=== PATIENT | male | born 1950 | race Caucasian/White ===

== ENCOUNTER → 2017-11-17 10:39 | Outpatient (CLI) | payer OTHER, SELFPAY ==
--- NOTE | 2017-11-17 | DI.ECHO.S_ITS ---
[facility]---------+ [facility] +---------+ : : [address] : [address] : : : : [id number] : : : : Phone: [phone]+ Echocardiogram Report + + :Name: KAMRYN GARCIA Study Date: 11/17/2017 Height: 69 in : :[facility] Exam Location: [facility] Weight: 195 lb : : Gender: Male BSA: 2.0 m2 : :: 1950 Age: 67 yrs BP: 140/90 mmHg: :Reason For Study: Dyspnea : : Performed By: Felicita Page : :Referring: RADHA SAGASTUME : + + Interpretation Summary Small left ventricular cavity with ejection fraction 60-65%. Mildly dilated both atria. Mild aortic valve sclerosis. Mild to moderate aortic regurgitation. Mild mitral annular calcification. The right ventricular systolic pressure is estimated at 26 mmHg assuming a right atrial pressure of 8 mm Hg. Mildly dilated aortic root and ascending aorta. Procedure: A two-dimensional transthoracic echocardiogram with color flow and Doppler was performed. The study quality was technically adequate. The patient was in sinus bradycardia with heart rates between 56-62 bpm during the exam. Left Ventricle: The left ventricular cavity is small. The ejection fraction is estimated to be 60-65%. There are no focal wall motion abnormalities. Assessment of diastolic parameters indicates normal left ventricular diastolic function and normal filling pressures. Right Ventricle: The right ventricle is normal in size and function. Atria: Both atria are mildly dilated. There is no Doppler evidence for an interatrial shunt. Mitral Valve: The mitral valve leaflets are slightly calcified. There is mild mitral annular calcification. There is no mitral regurgitation noted. Aortic Valve: The aortic valve is not well visualized. The aortic valve opens well. There is mild aortic valve sclerosis. There is mild to moderate aortic regurgitation. Tricuspid Valve: The tricuspid valve is normal in structure and function. There is trace tricuspid regurgitation. The right ventricular systolic pressure is estimated at 26 mmHg assuming a right atrial pressure of 8 mm Hg. Pulmonic Valve: The pulmonic valve is not well visualized. There is no pulmonic valvular regurgitation. Great Vessels: The aortic root is mildly dilated. The ascending aorta is mildly enlarged. The aortic arch is normal in size. The pulmonary artery is normal size. The IVC is dilated (diameter is greater than 2.1 cm) yet it collapses greater than 50% with a sniff. This suggests a right atrial pressure of 8 mm Hg. Pericardium/ Pleura There is no pericardial effusion. There is no pleural effusion. MMode/2D Measurements & Calculations LVIDd: 4.4 cm LVOT diam: 2.3 cm LVIDs: 2.4 cm Ao root diam: 4.2 cm FS: 44.5 % asc Aorta Diam: 3.7 cm EPSS: 0.16 cm Ao Arch Diam (Prox Trans): 2.5 cm IVSd: 0.73 cm LVPWd: 0.68 cm LV simpson. diameter/BSA (cm/m^2): 2.2 LV sys. diameter/BSA (cm/m^2): 1.2 LA A2 area: 25.3 cm2 RA long axis: 6.2 cm LA A4 area: 26.1 cm2 RA area: 23.4 cm2 LA length (vol): 7.0 cm RA vol: 75.1 ml LA vol: 80.1 ml RA : 36.7 ml/m2 LA vol index: 39.2 ml/m2 IVC diam: 2.4 cm RVD1 (basal): 4.7 cm TAPSE: 2.8 cm Doppler Measurements & Calculations Ao V2 max: 157.4 cm/sec LVOT Max Wilson: 122.8 cm/sec Ao V2 mean: 118.0 cm/sec LV V1 max P.0 mmHg Ao max P.9 mmHg LV V1 VTI: 27.6 cm Ao mean P.9 mmHg PEGGY(I,D): 3.4 cm2 Ao V2 VTI: 32.7 cm PEGGY(V,D): 3.2 cm2 sev ratio: 0.84 PEGGY indexed to BSA (cm^2/m^2): 1.7 MV E max wilson: 91.0 cm/sec TR max wilson: 210.3 cm/sec MV A max wilson: 65.7 cm/sec TR max P.7 mmHg MV E/A: 1.4 PA V2 max: 83.9 cm/sec Med Peak E' Wilson: 6.7 cm/sec PA V2 mean: 54.7 cm/sec E/E' med: 13.6 PA mean P.4 mmHg Lat Peak E' Wilson: 9.0 cm/sec E/E' lat: 10.1 E/e' average: 11.8 MV dec time: 0.25 sec MV P1/2t: 73.3 msec MV P1/2t max wilson: 90.8 cm/sec MVA(P1/2t): 3.0 cm2 Electronically signed by: Rogelio Singh on Reading Physician:11/17/2017 06:17 PM
== END ==
PROVIDERS: Visit Provider Internal Medicine
DX: R06.00 Dyspnea, unspecified (principal)
CPT/HCPCS: 93306